=== PATIENT | male | born 1935 | race Caucasian/White ===

== ENCOUNTER 2016-09-07 18:42 | Emergency (ER) | payer MEDICARE, OTHER ==
--- NOTE | 2016-09-07 19:29 | ED Physician Documentation ---
History of Present Illness - Stated complaint Stated Complaint: GLF - ARM PX - Chief complaint Chief Complaint: General - History obtained from History obtained from: Patient, Family - History of Present Illness Timing: Today Pain level max: 2 Pain level now: 2 Improved by: nothing Worsened by: nothing - Additonal information Additional information: Patient is an 80-year-old male who was at home today, walking and fell onto some brick. He sustained a laceration to the left hand, abrasions to the left tibia and skin tears to the right elbow. Did not hit his head. Has no headache. Review of Systems Throat: denies: Sore throat Respiratory: denies: Cough GI: denies: Vomiting Musculoskeletal: denies: Neck pain, Back pain Neurologic: denies: Focal weakness, Numbness, Headache, Head injury, LOC PD PAST MEDICAL HISTORY - Past Medical History Past Medical History: Yes Cardiovascular: Hypertension, High cholesterol Neuro: Seizure disorder Musculoskeletal: Chronic back pain - Past Surgical History Past Surgical History: Yes Ortho: Shoulder arthroplasty, Spine surgery - Present Medications Home Medications: Ambulatory Orders Medication Instructions Recorded Confirmed Aspirin 81 mg PO DAILY 09/07/16 09/07/16 Cephalexin [Keflex] 500 mg PO Q6H #28 capsule 09/07/16 Doxazosin [Cardura] 8 mg PO DAILY 09/07/16 09/07/16 Finasteride 5 mg PO DAILY 09/07/16 09/07/16 Gabapentin 300 mg PO TID 09/07/16 09/07/16 Phenytoin [Dilantin] 300 mg PO DAILY 09/07/16 09/07/16 Propranolol HCl 40 mg PO DAILY 09/07/16 09/07/16 Simvastatin 20 mg PO DAILY 09/07/16 09/07/16 amLODIPine [Norvasc] 5 mg PO BID 09/07/16 09/07/16 - Allergies Allergies/Adverse Reactions: Allergies Allergy/AdvReac Type Severity Reaction Status Date / Time No Known Drug Allergies Allergy Verified 09/07/16 18:48 - Social History Does the pt smoke?: No Smoking Status: Never smoker Does the pt drink ETOH?: No Does the pt have substance abuse?: No - Immunizations Immunizations are current?: Yes Immunizations: TDAP current <10years PD ED PE NORMAL - Vitals Vital signs reviewed: Yes - General General: Alert and oriented X 3, No acute distress - HEENT HEENT: Atraumatic, PERRL, Moist mucous membranes, Pharynx benign - Neck Neck: Supple, no meningeal sign, No bony TTP - Cardiac Cardiac: RRR - Respiratory Respiratory: No respiratory distress, Clear bilaterally - Abdomen Abdomen: Soft, Non tender - Back Back: No spinal TTP - Derm Derm: Warm and dry - Extremities Extremities: Other (Abrasion to the left proximal tibia. 2 skin tears to the right elbow, the largest is approximately 3-1/2 cm in circumference. The other one is smaller approximately 1 cm. He has a laceration to the lateral aspect of the left hand, mid palm approximately 3 cm, deep laceration. Neurovascularly intact. No foreign body. 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 ) Procedures - Laceration (location) L hand Length in cm: 3 Wound type: Linear, Into muscle, Contaminated Neurovascular status: Sensory intact, Motor intact, Vascular intact Tendon involvement: Tendon intact. No: Tendon Injury Anesthesia: Lidocaine 2% Wound Preparation: Irrigated copiously NS (1L NS), Wound explored, To the base. No: FB identified, FB removed Skin layer closure: Nylon, Interrupted, Size #-0 - enter number (4), Sutures - enter # (9) Other: Patient tolerated well, No complications, Neurovascular intact, Dressing applied, Tetanus UTD Complexity: Simple PD MEDICAL DECISION MAKING - ED course Complexity details: reviewed results, re-evaluated patient, considered differential, d/w patient, d/w family ED course: Patient is an 80-year-old male who fell today. Laceration repaired. Tolerated well. As this was a dirty wound, will place on Keflex for home as well. His tetanus shot is up-to-date. The skin tears were repaired using Steri-Strips. They were then bandaged with bacitracin. No other acute injuries. Patient and family counseled regarding signs and symptoms for which I believe and urgent re- evaluation would be necessary. Patient with good understanding of and agreement to plan and is comfortable going home at this time This document was made in part using voice recognition software. While efforts are made to proofread this document, sound alike and grammatical errors may occur. Departure - Departure Disposition: 01 Home, Self Care Clinical Impression: Skin tear Laceration of hand Qualifiers: Encounter type: initial encounter Foreign body presence: without foreign body Laterality: left Qualified Code(s): S61.412A - Laceration without foreign body of left hand, initial encounter Condition: Good Instructions: ED Laceration Hand, ED Avulsion Dermal Follow-Up: Samia Barnes DO [Primary Care Provider] - Within 1 week Prescriptions: Cephalexin [Keflex] 500 mg PO Q6H #28 capsule Comments: Return if you worsen. The stitches should be removed in 10-14 days with your doctor. Return if you notice redness, swelling or drainage from the wound. Discharge Date/Time: 09/07/16 21:44
[2016-09-07] MEDS ORDERED: LIDOCAINE 2% 10 ML MDV ONE (19:41)
[2016-09-07] MEDS ORDERED: CEPHALEXIN 250 MG CAPSULE PO STA (21:07)
[2016-09-07] MEDS ORDERED: CEPHALEXIN 250 MG CAPSULE PO ONE (21:09)
[2016-09-07 21:10] VITALS: BP 181/77
--- NOTE | 2016-09-07 21:39 | XRAY Preliminary Report ---
Exam: XR Hand 3 View LT IMPRESSION: Degenerative changes without evidence of acute osseous abnormality. [facility] SITE ID: [id number]
--- NOTE | 2016-09-07 21:41 | XRAY Report ---
EXAM: LEFT HAND RADIOGRAPHY EXAM DATE: 09/07/2016 09:29 PM. CLINICAL HISTORY: Fall, hand laceration. COMPARISON: None. TECHNIQUE: 3 views. FINDINGS: Bones: Normal. No fractures or bone lesions. Joints: Joint space narrowing and proliferative changes are present in the distal interphalangeal re nts. No subluxation. There is chondrocalcinosis in the triangular fibrocartilage. Soft Tissues: Second digit soft tissue swelling. IMPRESSION: Degenerative changes without evidence of acute osseous abnormality. [facility] Referring Provider Line: [phone] SITE ID: [id number]
== END 2016-09-07 21:44 | disposition home or self-care (01) ==
LOC: ED 18:42
DX: S61.412A Laceration without foreign body of left hand, initial encounter (principal); S80.812A Abrasion, left lower leg, initial encounter; S51.011A Laceration without foreign body of right elbow, initial encounter; W19.XXXA Unspecified fall, initial encounter; Z79.82 Long term (current) use of aspirin; E78.00 Pure hypercholesterolemia, unspecified; I10 Essential (primary) hypertension
CPT/HCPCS: 12002; 73130; 99283; A9270

== ENCOUNTER 2016-09-22 12:48 | Emergency (ER) | payer MEDICARE, OTHER ==
[2016-09-22 12:55] VITALS: BP 153/69
--- NOTE | 2016-09-22 13:09 | ED Physician Documentation ---
PD HPI WOUND RECHECK - Stated complaint Stated Complaint: STITCH REMOVAL - Chief complaint Chief Complaint: Laceration - Histroy obtained from History obtained from: Patient - History of Present Illness Location: Other (L hand) Timing - onset: How many weeks ago (2) Pain level max: 0 Pain level now: 0 Associated symptoms: No: Fever, Redness, Swelling, Drainage, Pain - Additional information Additional information: No complaints. Review of Systems Constitutional: denies: Fever Skin: denies: Rash Musculoskeletal: denies: Neck pain, Back pain PD PAST MEDICAL HISTORY - Past Medical History Past Medical History: Yes Cardiovascular: Hypertension, High cholesterol Neuro: Seizure disorder Musculoskeletal: Chronic back pain - Past Surgical History Past Surgical History: Yes Ortho: Shoulder arthroplasty, Spine surgery - Present Medications Home Medications: Ambulatory Orders Medication Instructions Recorded Confirmed Aspirin 81 mg PO DAILY 09/07/16 09/07/16 Cephalexin [Keflex] 500 mg PO Q6H #28 capsule 09/07/16 Doxazosin [Cardura] 8 mg PO DAILY 09/07/16 09/07/16 Finasteride 5 mg PO DAILY 09/07/16 09/07/16 Gabapentin 300 mg PO TID 09/07/16 09/07/16 Phenytoin [Dilantin] 300 mg PO DAILY 09/07/16 09/07/16 Propranolol HCl 40 mg PO DAILY 09/07/16 09/07/16 Simvastatin 20 mg PO DAILY 09/07/16 09/07/16 amLODIPine [Norvasc] 5 mg PO BID 09/07/16 09/07/16 - Allergies Allergies/Adverse Reactions: Allergies Allergy/AdvReac Type Severity Reaction Status Date / Time No Known Drug Allergies Allergy Verified 09/22/16 12:55 - Social History Does the pt smoke?: No Smoking Status: Never smoker Does the pt drink ETOH?: No Does the pt have substance abuse?: No - Immunizations Immunizations are current?: Yes Immunizations: TDAP current <10years PD ED PE NORMAL - Vitals Vital signs reviewed: Yes - General General: Alert and oriented X 3, No acute distress - Extremities Extremities: Other (L hand - healing well. no signs of infection. Elbow and tib/ fib abrasions are also without infection.) - Neuro Neuro: Alert and oriented X 3 - Psych Psych: Normal mood, Normal affect Results - Vitals Vitals: Vital Signs - 24 hr 09/22/16 12:51 Temperature 36.5 C Heart Rate 55 L Respiratory 20 Rate Blood Pressure 153/69 H O2 Saturation 99 Oxygen O2 Source Room air Procedures - Suture/staple Removal (location) L hand Suture/staple removal: # sutures (all), No complications PD MEDICAL DECISION MAKING - ED course Complexity details: considered differential, d/w patient, d/w family ED course: Patient is an 80-year-old male who is here to have his sutures removed. This was done. No signs of infection. Patient is well-appearing, nontoxic. Afebrile. Warnings of infection and instructions on wound care given at bedside. Also counseled on how to minimize scarring. Patient counseled regarding signs and symptoms for which I believe and urgent re-evaluation would be necessary. Patient with good understanding of and agreement to plan and is comfortable going home at this time This document was made in part using voice recognition software. While efforts are made to proofread this document, sound alike and grammatical errors may occur. Departure - Departure Disposition: 01 Home, Self Care Clinical Impression: Visit for suture removal Condition: Good Instructions: ED Wound Check Sutr Remove No Infec Follow-Up: Samia Barnes DO [Primary Care Provider] - As Needed Comments: Return if you worsen.
== END 2016-09-22 13:11 | disposition home or self-care (01) ==
LOC: ED 12:48
DX: S61.412D Laceration without foreign body of left hand, subsequent encounter (principal); X58.XXXD Exposure to other specified factors, subsequent encounter; I10 Essential (primary) hypertension; Z79.82 Long term (current) use of aspirin
CPT/HCPCS: 99281; 99283

== ENCOUNTER 2017-04-15 10:06 | Outpatient (CLI) | payer MEDICARE, OTHER ==
--- NOTE | 2017-04-15 13:00 | XRAY Report ---
DATE OF SERVICE: 04/15/2017 THREE VIEW RIGHT FOOT: 04/15/2017 CLINICAL INDICATION: Ulcer second toe. FINDINGS: AP, lateral, and oblique views of the right foot demonstrate osteoarthritic changes. Plantar and posterior calcaneal spurring is present. There is no evidence of acute fracture or dislocation. No osteolysis is seen to suggest osteomyelitis. Vascular calcifications are present. No foreign body is seen in the soft tissues. IMPRESSION: OSTEOARTHRITIS. NO OSTEOLYSIS TO SUGGEST OSTEOMYELITIS. TD: 04/15/2017 13:59
== END 2017-04-15 10:07 | disposition home or self-care (01) ==
LOC: DI 10:06
PROVIDERS: ATTEND Podiatrist
DX: M19.071 Primary osteoarthritis, right ankle and foot (principal)

== ENCOUNTER 2019-02-15 09:31 | Outpatient (CLI) | payer MEDICARE, OTHER | END 2019-02-15 09:32 | disposition EMS.NT | LOC: EMS 09:31 | PROVIDERS: ATTEND Surgery | DX: R19.8 Other specified symptoms and signs involving the digestive system and abdomen (principal) ==

== ENCOUNTER 2019-05-19 18:35 | Outpatient (CLI) | payer MEDICARE, OTHER | END 2019-05-19 18:36 | disposition critical access hospital (66) | LOC: EMS 18:35 | PROVIDERS: ATTEND Surgery | DX: R53.1 Weakness (principal); M54.5 Low back pain; W01.0XXA Fall on same level from slipping, tripping and stumbling without subsequent striking against object, initial encounter | CPT/HCPCS: A0425; A0429 ==

== ENCOUNTER 2019-05-19 18:59 | Observation (INO) | payer MEDICARE, OTHER ==
[2019-05-19] MEDS ORDERED: SODIUM CHLORIDE 0.9% 1,000 ML IV ONE (19:33)
[2019-05-19 19:53] LABS: BASOPHILS # (AUTO) 0.1 10^3/uL (0.0-0.1); EOSINOPHILS # (AUTO) 0.1 10^3/uL (0.0-0.7); EOSINOPHILS % (AUTO) 1.5 %; HGB - HEMOGLOBIN 11.6 g/dL (14.0-18.0); LYMPHOCYTES # (AUTO) 1.1 10^3/uL (1.5-3.5); LYMPHOCYTES % (AUTO) 14.1 %; MEAN CORPUSCULAR HEMOGLOBIN 29.4 pg (27.0-31.0); MEAN CORPUSCULAR HGB CONC 32.7 g/dL (32.0-36.0); MEAN CORPUSCULAR VOLUME 89.9 fL (80.0-94.0); MEAN PLATELET VOLUME 9.2 fL (7.4-11.4); MONOCYTES # (AUTO) 0.8 10^3/uL (0.0-1.0); MONOCYTES % (AUTO) 10.2 %; NEUTROPHILS # (AUTO) 5.9 10^3/uL (1.5-6.6); NEUTROPHILS % (AUTO) 72.7 %; PLT - PLATELET COUNT 195 10^3/uL (130-450); RED BLOOD COUNT 3.95 10^6/uL (4.70-6.10); RED CELL DISTRIBUTION WIDTH 13.4 % (12.0-15.0)
[2019-05-19] MEDS ORDERED: DEXAMETHASONE 10 MG/ML VIAL IVP STA (19:56)
--- NOTE | 2019-05-19 19:59 | ED Physician Documentation ---
History of Present Illness - Stated complaint Stated Complaint: GLF - Chief complaint Chief Complaint: Neuro - History obtained from History obtained from: Patient, Family, EMS - History of Present Illness Timing: Today - Additonal information Additional information: 83-year-old male with chronic back pain and a right foot drop status post surgery x2 and epidural steroid injections was using his walker this morning when he decided he could walk to the closet without it. He fell. He injured his upper back. He did hit his head and has some neck pain. He was not knocked unconscious. He was able to get back up and he returned to his usual activities of the day. He went out for coffee in the morning. This evening he went to sit down and was not able to get up back up out of the chair. His legs were wobbling both of them and unable to support his weight. Even medics had a hard time getting the patient to stand up. His family was not able to assist him to stand. He has had some similar "wobbling" of the right leg previously but he is generally able to get around this. He denies current illness or change in medications or his routine. He has been using a walker for about 2 months and previously used a cane for the past 2 years. He denies any numbness to the feet but has his right foot in a brace for foot drop long standing and he does not feel this has changed. He is on dilantin after having an alcohol withdrawal seizure in 1985. He has been on it since and tried to stop once and when he experienced de-ja-vo he restarted it and has never stopped. Review of Systems Constitutional: reports: Fatigue. denies: Fever, Chills, Myalgias Eyes: denies: Decreased vision Ears: denies: Ear pain Nose: denies: Rhinorrhea / runny nose, Congestion Throat: denies: Sore throat Cardiac: denies: Chest pain / pressure, Palpitations Respiratory: denies: Dyspnea, Cough GI: reports: Constipation. denies: Abdominal Pain, Nausea, Vomiting : denies: Dysuria, Frequency Skin: denies: Rash Musculoskeletal: reports: Neck pain, Back pain. denies: Extremity pain, E xtremity swelling Neurologic: reports: Focal weakness (right foot drop is chronic). denies: Generalized weakness, Numbness PD PAST MEDICAL HISTORY - Past Medical History Cardiovascular: Hypertension, High cholesterol Musculoskeletal: Chronic back pain - Past Surgical History Past Surgical History: Yes Ortho: Shoulder arthroplasty, Spine surgery - Present Medications Home Medications: Ambulatory Orders Medication Instructions Recorded Confirmed Aspirin 81 mg PO DAILY 09/07/16 05/19/19 Doxazosin [Cardura] 8 mg PO DAILY PM 09/07/16 05/19/19 Finasteride 5 mg PO DAILY 09/07/16 05/19/19 Phenytoin [Dilantin] 100 mg PO TID 09/07/16 05/19/19 Simvastatin 20 mg PO DAILY PM 09/07/16 05/19/19 amLODIPine [Norvasc] 10 mg PO DAILY 09/07/16 05/19/19 Melatonin 5 mg PO DAILY 05/19/19 05/19/19 Sennosides/Docusate Sodium [Stool 1 each PO DAILY 05/19/19 05/19/19 Softener-Laxative Tablet] - Allergies Allergies/Adverse Reactions: Allergies Allergy/AdvReac Type Severity Reaction Status Date / Time No Known Drug Allergies Allergy Verified 05/19/19 19:11 - Social History Does the pt smoke?: No Smoking Status: Never smoker Does the pt drink ETOH?: No Does the pt have substance abuse?: No - Immunizations Immunizations are current?: Yes Immunizations: TDAP current <10years PD ED PE NORMAL - Vitals Vital signs reviewed: Yes (hypertensive ) - General General: Alert and oriented X 3, No acute distress, Well developed/nourished - HEENT HEENT: PERRL, EOMI, Other (The entire scalp is palpated and there is no specific point tenderness, bruising or swelling ) - Neck Neck: Supple, no meningeal sign, Other (There is mid and lower cervical spine midline point tenderness with preserved ROM without much pain. ) - Cardiac Cardiac: RRR, No murmur - Respiratory Respiratory: No respiratory distress, Clear bilaterally - Abdomen Abdomen: Soft, Non tender - Back Back: No CVA TTP, Other (There is a mid thoracic abrasion and tenderness to the left side of the spine and central tenderness mild. ) - Derm Derm: Normal color, Warm and dry - Extremities Extremities: Other (There is a cock up brace to the right foot which is held in external rotation at rest. Chronic. He is not able to move the toes on the right. He has normal movement and sensation in the left. ) - Neuro Neuro: Alert and oriented X 3, chief operator hydroformer 2-12 intact, No sensory deficit, Normal speech, Other (There is a pre-existing motor deficit on the right foot with a "foot drop") Eye Opening: Spontaneous Motor: Obeys Commands Verbal: Oriented GCS Score: 15 - Psych Psych: Normal mood, Normal affect Results - Vitals Vitals: Vital Signs - 24 hr 05/19/19 05/19/19 05/19/19 19:05 20:16 21:09 Temperature 36.8 C 36.9 C Heart Rate 81 76 75 Respiratory 21 13 16 Rate Blood Pressure 193/86 H 173/78 H 154/71 H O2 Saturation 98 96 95 05/19/19 05/20/19 05/20/19 22:21 00:03 01:13 Temperature Heart Rate 67 85 82 Respiratory 20 16 14 Rate Blood Pressure 136/66 H 137/68 H 139/82 H O2 Saturation 96 96 96 Oxygen O2 Source Room air - Labs Labs: Laboratory Tests 05/19/19 05/19/19 05/19/19 19:44 19:44 19:44 WBC 8.0 RBC 3.95 L Hgb 11.6 L Hct 35.5 L MCV 89.9 MCH 29.4 MCHC 32.7 RDW 13.4 Plt Count 195 MPV 9.2 Neut # (Auto) 5.9 Lymph # (Auto) 1.1 L Rolette # (Auto) 0.8 Eos # (Auto) 0.1 Baso # (Auto) 0.1 Absolute Nucleated RBC 0.00 Nucleated RBC % 0.0 Sodium 128 L Potassium 3.8 Chloride 94 L Carbon Dioxide 26 Anion Gap 8.0 BUN 10 Creatinine 0.6 Estimated GFR (MDRD) 128 Glucose 114 H Lactic Acid Calcium 9.0 Total Bilirubin 0.7 AST 23 ALT 18 Alkaline Phosphatase 100 Troponin I High Sens 8.7 Total Protein 7.3 Albumin 4.4 Globulin 2.9 Albumin/Globulin Ratio 1.5 Lipase 22 Urine Color Urine Clarity Urine pH Ur Specific [place] Urine Protein Urine Glucose (UA) Urine Ketones Urine Occult Blood Urine Nitrite Urine Bilirubin Urine Urobilinogen Ur Leukocyte Esterase Ur Microscopic Review Urine Culture Comments Phenytoin 3.4 05/19/19 05/19/19 19:44 20:51 WBC RBC Hgb Hct MCV MCH MCHC RDW Plt Count MPV Neut # (Auto) Lymph # (Auto) [place] # (Auto) Eos # (Auto) Baso # (Auto) Absolute Nucleated RBC Nucleated RBC % Sodium Potassium Chloride Carbon Dioxide Anion Gap BUN Creatinine Estimated GFR (MDRD) Glucose Lactic Acid 0.9 Calcium Total Bilirubin AST ALT Alkaline Phosphatase Troponin I High Sens Total Protein Albumin Globulin Albumin/Globulin Ratio Lipase Urine Color YELLOW Urine Clarity CLEAR Urine pH 7.0 Ur Specific [place] 1.010 Urine Protein NEGATIVE Urine Glucose (UA) NEGATIVE Urine Ketones NEGATIVE Urine Occult Blood TRACE-INTA Urine Nitrite NEGATIVE Urine Bilirubin NEGATIVE Urine Urobilinogen 0.2 (NORMAL) Ur Leukocyte Esterase NEGATIVE Ur Microscopic Review NOT INDICATED Urine Culture Comments NOT INDICATED Phenytoin - Rads (name of study) thoracic spine ct Radiology: Prelim report reviewed (Impression: No acute thoracic spine abnormalities.), EMP read indepedently, See rad report Cervical spine CT Radiology: Prelim report reviewed, EMP read indepedently, See rad report Head CT Radiology: Prelim report reviewed (Impression: No acute intracranial abnormality.), EMP read indepedently, See rad report CT lumbar spine Radiology: Prelim report reviewed (Impression: Diffuse osteopenia. Acute mildly displaced transverse fracture through superior endplate of L1 vertebral body. No extension into the posterior vertebral margin. No retropulsion. Stable fracture.), EMP read indepedently, See rad report Procedures - IVC sono (time) 192 Bedside IVC sono: IVC measures (cm) (1.01), IVC collapsed c insp (cm) (complete), Dehydration (est 1-2 liter deficit) PD MEDICAL DECISION MAKING - ED course Complexity details: reviewed old records, reviewed results, re-evaluated patient, considered differential, d/w patient, d/w family ED course: 83-year-old male who had a fall this morning is found to be dehydrated on interrogation of the inferior vena cava and he is administered venous saline. He has a low sodium but does not appear to be low enough to cause this significant of weakness. He is hydrated and still weak and unable to walk or stand without assistance. He has become anxious and complains of pain in the lower end of the lumbar spine when he is being moved around for imaging. He is given iv toradal and ativan before moving back for imaging of the lumbar spine. The CT scan of the lumbar spine shows transverse fracture through L1 without retropulsion or involvement of posterior elements. The patient is having tremendous difficulty standing. I watched the patient being helped by 2 strong males tried to stand. He was on the commode he was lifted his legs both begin to shake and he requires complete assistance. He is normally able to get himself out of bed and use his walker. I am concerned there may be some issue with swelling or spinal stenosis related to this acute injury. He was administered dexamethasone on arrival to the emergency department and despite 4 hours in the department he has not had improvement in his symptoms. I believe the patient needs to have MRI of the lumbar spine done. I have consulted the neurosurgeon at [facility] for further direction in his care. Dr. Manriquez spine attending at [facility] indicates that surgery is unlikely to be required and recommend follow up with spine clinic. We will get the MRI here today and disposition the patient pending the results. Dr. Mireles is consulted in the case. Departure - Departure Disposition: ED Place in Observation Clinical Impression: Assistance needed for ambulation and movement, Spinal stenosis of lumbar region with neurogenic claudication Closed L1 vertebral fracture Qualifiers: Encounter type: initial encounter Fracture morphology: burst- stable Qualified Code(s): S32.011A - Stable burst fracture of first lumbar vertebra, initial encounter for closed fracture Condition: Stable Discharge Date/Time: 05/20/19 03:40
[2019-05-19 20:07] LABS: ALBUMIN 4.4 g/dL (3.2-5.5); ALBUMIN/GLOBULIN RATIO 1.5 (1.0-2.2); BILIRUBIN,TOTAL 0.7 mg/dL (0.2-1.0); CREATININE 0.6 mg/dL (0.6-1.2); PHENYTOIN (DILANTIN) 3.4 ug/mL; TOTAL PROTEIN 7.3 g/dL (6.7-8.2)
--- NOTE | 2019-05-19 20:22 | CT Report ---
Reason: ataxia, post head trauma Procedure Date: 05/19/2019 Accession Number: [id number] / [id number] Procedure: CT - HEAD WO CPT Code: Final Report FULL RESULT: EXAM: CT HEAD EXAM DATE: 05/19/2019 08:07 PM. CLINICAL HISTORY: Ataxia, post head trauma. COMPARISON: None. TECHNIQUE: Multiaxial CT images were obtained from the foramen magnum to the vertex. Reformats: Sagittal and coronal. IV contrast: None. In accordance with CT protocol optimization, one or more of the following dose reduction techniques were utilized for this exam: automated exposure control, adjustment of mA and/or KV based on patient size, or use of iterative reconstructive technique. FINDINGS: Parenchyma: There are patchy periventricular low density white matter changes. No evidence of acute infarction or hemorrhage. Extraaxial Spaces: Normal for age. No subdural or epidural collections identified. Ventricles: Normal in size and position. Sinuses and Orbits: Imaged paranasal sinuses, orbits, and mastoids show no significant abnormality. Bones: No evidence of fracture or calvarial defect. Other: None. IMPRESSION: No acute intracranial abnormality. [facility]
--- NOTE | 2019-05-19 20:31 | CT Report ---
Reason: polytrauma, critical Procedure Date: 05/19/2019 Accession Number: [id number] / [id number] Procedure: CT - CERVICAL SPINE WO CPT Code: Final Report FULL RESULT: EXAM: CT CERVICAL SPINE WITHOUT CONTRAST DATE: 05/19/2019 08:07 PM. HISTORY: Polytrauma, critical. COMPARISONS: HEAD W/O 05/19/2019 7:55 PM THORACIC SPINE W/O 05/19/2019 8:02 PM. TECHNIQUE: Thin-section axial images were acquired of the cervical spine without contrast. Post-processing: Coronal and sagittal reformats. Other: None. In accordance with CT protocol optimization, one or more of the following dose reduction techniques were utilized for this exam: automated exposure control, adjustment of mA and/or KV based on patient size, or use of iterative reconstructive technique. FINDINGS: Alignment: No scoliosis or spondylolisthesis. Bones: No fracture or bone lesion from the craniocervical junction through T2. Interspace Levels/Facets: Moderate osteoarthritis of the pre-dens interval. 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 Disk height loss and endplate osteophyte formation indicating degenerative disk disease which is minimal at C2-C3, moderate C3-C4 through C5-C6, mild at C6-C7, moderate at C7-T1, mild at T1-T2. There is minimal multilevel upper bilateral cervical facet osteoarthritis. There is bony foraminal stenosis which is moderate bilaterally at C3-C4, severe bilaterally at C4-C5, severe on the right and moderate on the left at C5-C6. Musculature: Normal. No fatty atrophy. Other: The paravertebral and prevertebral soft tissues are unremarkable. The lung apices are clear. IMPRESSION: 1. No fracture or subluxation of the cervical spine. 2. Moderate multilevel cervical degenerative changes as described above. [facility]
--- NOTE | 2019-05-19 20:35 | CT Report ---
Reason: fall mid thoracic trauma leg weakness Procedure Date: 05/19/2019 Accession Number: [id number] / [id number] Procedure: CT - THORACIC SPINE WO CPT Code: Final Report FULL RESULT: EXAM: CT THORACIC SPINE WITHOUT CONTRAST EXAM DATE: 05/19/2019 08:07 PM. CLINICAL HISTORY: Fall. Mid thoracic trauma. Leg weakness. COMPARISONS: None. TECHNIQUE: Thin-section axial images were acquired of the thoracic spine from C7 to L1 without contrast. Post-processing: Coronal and sagittal reformats. Other: None. In accordance with CT protocol optimization, one or more of the following dose reduction techniques were utilized for this exam: automated exposure control, adjustment of mA and/or KV based on patient size, or use of iterative reconstructive technique. FINDINGS: Alignment: No scoliosis or spondylolisthesis. Bones: Anterolateral hyperostosis with rigid spine. No traumatic or destructive bone abnormality. Disk Levels/Facets: Disk space is preserved. No facet malalignment. Other: The visualized lungs, mediastinum, and abdominal cavity are unremarkable. IMPRESSION: No acute thoracic spine abnormalities. RADIA
[2019-05-19 20:59] LABS: BILIRUBIN,URINE NEGATIVE (NEGATIVE); GLUCOSE, URINE (UA) NEGATIVE (NEGATIVE); KETONES,URINE (UA) NEGATIVE (NEGATIVE); LEUKOCYTE ESTERASE, URINE NEGATIVE (NEGATIVE); NITRITE,URINE NEGATIVE (NEGATIVE); OCCULT BLOOD,URINE TRACE-INTA (NEGATIVE); PROTEIN,URINE NEGATIVE (NEGATIVE); UROBILINOGEN,URINE 0.2 (NORMAL) E.U./dL (NORMAL)
[2019-05-19 21:03] LABS: CLARITY,URINE CLEAR (CLEAR)
[2019-05-19] MEDS ORDERED: LORazepam 2 MG/ML VIAL IVP STA (21:33)
[2019-05-19] MEDS ORDERED: KETOROLAC 30 MG/ML VIAL IVP STA (21:33)
--- NOTE | 2019-05-19 22:36 | CT Report ---
Reason: fall back pain LE weakness Procedure Date: 05/19/2019 Accession Number: [id number] / [id number] Procedure: CT - LUMBAR SPINE WO CPT Code: Final Report FULL RESULT: EXAM: CT LUMBAR SPINE WITHOUT CONTRAST EXAM DATE: 05/19/2019 10:07 PM. CLINICAL HISTORY: Fall back pain LE weakness. COMPARISONS: None. TECHNIQUE: Thin-section axial images were acquired of the lumbar spine from T12 to S1 without contrast. Post-processing: Coronal and sagittal reformats. Other: None. In accordance with CT protocol optimization, one or more of the following dose reduction techniques were utilized for this exam: automated exposure control, adjustment of mA and/or KV based on patient size, or use of iterative reconstructive technique. FINDINGS: Alignment: No scoliosis or spondylolisthesis. Bones: Diffuse osteopenia. Acute mildly displaced transverse fracture through superior endplate of L1 vertebral body. No extension into posterior vertebral margin. No retropulsion. Musculature: Normal. No fatty atrophy. Other: The visualized retroperitoneum is unremarkable. IMPRESSION: Diffuse osteopenia. Acute mildly displaced transverse fracture through superior endplate of L1 vertebral body. No extension into posterior vertebral margin. No retropulsion.Stable fracture. RADIA
[2019-05-20] MEDS ORDERED: KETOROLAC 30 MG/ML VIAL IVP STA (02:22)
[2019-05-20] MEDS ORDERED: SODIUM CHLORIDE FLUSH 0.9% 10 ML SYRINGE IVP PRN (02:52)
--- NOTE | 2019-05-20 03:34 | HISTORY & PHYSICAL EXAMINATION ---
Chief Complaint - Chief Complaint Chief Complaint: Fall and weakness History of Present Illness - Admitted From Admitted From:: Home - History Obtained From Records Reviewed: Yes History obtained from: Patient, Spouse, ER Physician, EMR - History of Present Illness HPI Comment/Other: 83-year-old male with a past medical history significant for hypertension and chronic lower back pain with a right foot drop who presented yesterday evening for weakness and difficulty ambulating after having a fall yesterday morning. The patient states he has chronic lower back pain after he had lumbar surgery in the late 70s. He recently has been receiving epidural steroid injections with the last one being near the end of 2018. Receives and injections with Dr. Langford at [place]. He states the most recent one was not successful as his pain is only controlled for a few days. He states that he has had right dropfoot for the past few years. He had initially been ambulating with a cane but now needs to use a walker. 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 He states that he has chronic numbness in his right lower extremity that is most prominent below the right knee. Yesterday morning he went ambulate to his closet at around 6:30 AM but he did not use his walker like he usually does and he fell. He denied any syncope or loss of consciousness. He did slightly hit the back of his head but most of the fall had him landed on his lower back. He states that he was able to get up with assistance and was able to go on with his day which included getting coffee with his and friends likely do every morning. He states that when he returned home in the afternoon he was still doing fine. He notes in the evening he was unable to get out of the chair which is new for him. He needed assistan ce and had to use his upper extremities to help stand up. He states that his both his legs felt weak and shaky. He reports no bladder or bowel incontinence or perineal anesthesia. +He reports no fevers, chills, chest pain, dizziness, palpitations. He reports his lower back pain is currently controlled after receiving pain medication in the emergency department. He reports no seizure today. He is on Dilantin after he had an alcohol withdrawal seizure back in 1985. He no longer drinks alcohol. Reports he has had good oral intake at home but he does report feeling thirsty at the moment. In the emergency department, he is found to be afebrile temperature of 37 C, heart rate of 81. He was hypertensive with a blood pressure of 193/86. He was not tachypneic and saturating well on room air. Labs are unremarkable except for sodium of 128 and chloride of 94. Urinalysis was unremarkable. CT of the head, cervical spine, thoracic spine did not show any acute abnormalities. CT of the lumbar spine showed an acute mildly displaced transverse fracture through superior endplate of the L1 vertebral body with no extension into posterior vertebral margin and no retropulsion. The patient was still quite weak in the emergency department and he was unable to get out of bed without a two-person assist patient. Neurosurgery was contacted at [facility] by the emergency department physician who felt acute surgical intervention was not warranted. He recommended he can follow-up with the spine clinic and a MRI can be obtained. Patient did receive a liter of saline in the emergency department as well as 10 mg of dexamethasone. He also received Toradol with improvement in his pain. I did discuss goals of care with the patient who states that he would like to be a DNR. History - Past Medical History Cardiovascular: reports: Hypertension, High cholesterol Respiratory: reports: None Neuro: reports: None, Other (Alcohol withdrawal seizure) Endocrine/Autoimmune: reports: None GI: reports: None : reports: None HEENT: reports: None Psych: reports: None Musculoskeletal: reports: Chronic back pain Derm: reports: None MRSA Hx?: No - Past Surgical History Ortho: reports: Shoulder arthroplasty, Spine surgery - Family & Social History Living arrangement: At home Living Situation: With spouse/s.o. Social History Notes: He lives at home with his . He no longer smokes or drinks alcohol after quitting in 1985. - Substance History Use: Uses substance without health or social issues: NONE - POLST Patient has POLST: No Meds/Allgy - Home Medications Home Medications: Ambulatory Orders Medication Instructions Recorded Confirmed Aspirin 81 mg PO DAILY 09/07/16 05/19/19 Doxazosin [Cardura] 8 mg PO DAILY PM 09/07/16 05/19/19 Finasteride 5 mg PO DAILY 09/07/16 05/19/19 Phenytoin [Dilantin] 100 mg PO TID 09/07/16 05/19/19 Simvastatin 20 mg PO DAILY PM 09/07/16 05/19/19 amLODIPine [Norvasc] 10 mg PO DAILY 09/07/16 05/19/19 Melatonin 5 mg PO DAILY 05/19/19 05/19/19 Sennosides/Docusate Sodium [Stool 1 each PO DAILY 05/19/19 05/19/19 Softener-Laxative Tablet] - Allergies Allergies/Adverse Reactions: Allergies Allergy/AdvReac Type Severity Reaction Status Date / Time No Known Drug Allergies Allergy Verified 05/19/19 19:11 Review of Systems - Constitutional Constitutional: reports: Weakness. denies: Fatigue, Fever, Chills - Cardiovascular Cariovascular: denies: Palpitations, Chest pain, Lightheadedness, Syncope - Respiratory Respiratory: denies: Cough, SOB at rest, SOB with exertion - Gastrointestinal Gastrointestinal: denies: Abdominal pain, Nausea, Vomiting - Genitourinary Genitourinary: denies: Dysuria, Frequency, Urgency, Incontinence - Musculoskeletal Musculoskeletal: reports: Back pain, Limited range of motion, Muscle weakness - Integumentary Integumentary: denies: Rash - Neurological Neurological: reports: General weakness, Focal weakness, Numbness, Pre-existing deficit, Abnormal gait - All Other Systems All Other Systems: reports: Reviewed and negative Prior Level of Functionality: Lives at home with his and he is normally independent with his ADLs. He ambulates with a walker at baseline. Exam - Vital Signs Reviewed Vital Signs: Yes Vital Signs: Vital Signs x48h Temp Pulse Resp BP Pulse Ox 05/20/19 01:13 82 14 139/82 H 96 05/20/19 00:03 85 16 137/68 H 96 05/19/19 22:21 67 20 136/66 H 96 05/19/19 21:09 36.9 C 75 16 154/71 H 95 05/19/19 20:16 76 13 173/78 H 96 - Physical Exam General Appearance: positive: No acute distress, Alert Eyes Bilateral: positive: Normal inspection, Conjunctivae nml ENT: positive: ENT inspection nml, Dry mucous membranes Neck: positive: Nml inspection Respiratory: positive: No respiratory distress. negative: Wheezes, Rales, Rhon chi Cardiovascular: positive: Regular rate & rhythm, Systolic murmur. negative: Tachycardia, Bradycardia Abdomen: positive: Non-tender, No distention. negative: Tenderness Back: positive: Other (Prior incisional scar noted over the lumbar spine. No spinal tenderness. No paraspinal muscle tenderness.) Skin: positive: No rash, Warm, Dry Extremities: positive: No pedal edema Neurologic/Psychiatric: positive: Oriented x3, Other (He has decreased sensation below the right knee which she states is not new. He has 4 out of 5 motor strength in his left lower extremity. His motor strength in his right lower extremity is about 3 out of 5 proximally and 3 out of 5 distally. He is unable to dorsiflex his right foot.). negative: Disoriented to person, Disoriented to place, Disoriented to time Comments/Other: It was difficult to assess his lower extremity reflexes due to his seating position and difficulty moving out of bed secondary to pain and weakness. He tells me he normally has no reflexes in his right lower extremity below the knee. His reflexes did appear to be diminished on exam bilaterally in the lower extremities at L2-L4. Conclusion/Plan - Problem List (1) Closed L1 vertebral fracture Conclusion/Plan: He has an acute mildly displaced transverse fracture through superior endplate of the L1 vertebral body with no extension into posterior vertebral margin or retropulsion. This is likely secondary to his fall as he reports his lower back took the brunt of the force. The case was discussed with neurosurgery luzmaria feliciano no acute surgical intervention and to follow-up at the spine clinic as well as obtaining an MRI of the lumbar spine. The MRI will be obtained given his worsening weakness of his right lower extremity as well as new weakness in his left lower extremity. He will be admitted for observation for pain control. Treat his pain with Tylenol 1 g 3 times daily and oxycodone as needed. Consult physical therapy. Qualifiers: Encounter type: initial encounter Fracture morphology: other fracture Qualified Code(s): S32.018A - Other fracture of first lumbar vertebra, initial encounter for closed fracture (2) Lower extremity weakness Conclusion/Plan: He normally has chronic right lower extremity weakness secondary to chronic back pain and dropfoot but today he has bilateral lower extremity weakness although this is more prominent in his right lower extremity. Suspect this is secondary to his fall this morning that caused the L1 fracture. Although the CT does not show significant displacement of the fracture, his ongoing symptoms warrant further work-up with MRI of the lumbar spine. We will consult physical therapy. Qualifiers: Laterality: bilateral Qualified Code(s): R29.898 - Other symptoms and signs involving the musculoskeletal system (3) Fall Conclusion/Plan: Ground-level fall appears to be mechanical in nature. No evidence of syncope by history. Given his ongoing lower extremity weakness and required assistance, will consult physical therapy. Qualifiers: Encounter type: initial encounter Qualified Code(s): W19.XXXA - Unspecified fall, initial encounter (4) Hyponatremia Conclusion/Plan: Suspect this is hypovolemic hyponatremia as he appears dry on exam. His sodium is low at 128. We will treat him with IV fluids and monitor his sodium. (5) Dehydration Conclusion/Plan: He does appear hypervolemic on exam and his sodium is decreased. We will treat him with IV fluids. This may potentially be contributing to his new weakness. (6) Hypertension Conclusion/Plan: Pressure is was initially quite elevated systolic in the 190s but suspect some secondary to pain. It is now improved and we will resume his home antihypertensives. (7) Hyperlipidemia Conclusion/Plan: Continue his home simvastatin. (8) Cardiac murmur Conclusion/Plan: There is a murmur on exam which is concerning for aortic stenosis. Will obtain an echocardiogram. (9) History of seizure Conclusion/Plan: He has a history of seizure in 1985 after he quit drinking alcohol. We will resume his home Dilantin. - Lab Results Lab results reviewed: Yes Fish Bones: 05/20/19 04:50 05/20/19 04:50 - Diagnostic Imaging Results Diagnostic Imaging Results: positive: Final report reviewed Core Measures - Anticipated LOS I expect patient to be DC'd or transferred within 96 hours.: Yes - Issues Hospital Issues and Management Plan: 83-year-old male with chronic back pain and right foot drop who presents today with new back pain and worsening deficit after a fall. Found to have a lumbar fracture of L1 with no retropulsion. The case was discussed with neurosurgery at [facility] who felt transfer was not warranted and likely no role for acute surgical intervention. Will obtain MRI for further evaluation. Consult PT and pain control. He is also dehydrated and hyponatremic. Will treat with IV fluids. - DVT/VTE - Prophylaxis VTE/DVT Device ordered at admit?: Yes VTE/DVT Prophylaxis med ordered at admit?: Yes
[2019-05-20 05:25] LABS: BASOPHILS % (AUTO) 0.3 %; HGB - HEMOGLOBIN 10.9 g/dL (14.0-18.0); LYMPHOCYTES # (AUTO) 0.6 10^3/uL (1.5-3.5); LYMPHOCYTES % (AUTO) 7.4 %; MEAN CORPUSCULAR HEMOGLOBIN 28.5 pg (27.0-31.0); MEAN CORPUSCULAR HGB CONC 32.3 g/dL (32.0-36.0); MEAN PLATELET VOLUME 9.8 fL (7.4-11.4); MONOCYTES # (AUTO) 0.6 10^3/uL (0.0-1.0); MONOCYTES % (AUTO) 7.1 %; NEUTROPHILS # (AUTO) 6.7 10^3/uL (1.5-6.6); NEUTROPHILS % (AUTO) 84.8 %; PLT - PLATELET COUNT 194 10^3/uL (130-450); RED BLOOD COUNT 3.83 10^6/uL (4.70-6.10); RED CELL DISTRIBUTION WIDTH 13.4 % (12.0-15.0); WHITE BLOOD COUNT 7.9 x10^3/uL (4.8-10.8)
[2019-05-20 05:35] LABS: CALCIUM 8.9 mg/dL (8.5-10.3); CREATININE 0.7 mg/dL (0.6-1.2); MAGNESIUM 2.1 mg/dL (1.7-2.8); PHOSPHORUS 2.4 mg/dL (2.5-4.6)
[2019-05-20] MEDS: ACETAMINOPHEN 500 MG TABLET PO SCH ×3 (06:38→21:54)
[2019-05-20] MEDS: PHENYTOIN ER 100 MG CAPSULE PO SCH ×3 (06:38→21:54)
[2019-05-20] MEDS: SODIUM CHLORIDE 0.9% 1,000 ML IV SCH ×2 (06:38→17:25)
--- NOTE | 2019-05-20 08:45 | PHARMACY PROGRESS NOTE ---
- Best Possible Medication History Admit Date and Time: 05/20/19 0252 Processed by: Nursing Medication History completed: Yes As the person ultimately responsible for medication therapy, providers are able to order a medication from an existing home medication list in [facility] via the "Reconcile Routine" prior to Confirmation of that medication by customer support engineer. Such practice is discouraged except when the physician, in their clinical judgment, deems that a medical need exists for a medication without regard to previous use.
[2019-05-20] MEDS: amLODIPine 5 MG TABLET PO SCH (09:54)
[2019-05-20] MEDS: ASPIRIN CHEW 81 MG TABLET PO SCH (09:54)
[2019-05-20] MEDS: HEPARIN 5,000 UNIT/ML VIAL SUBQ SCH ×2 (09:55→20:41)
[2019-05-20] MEDS: oxyCODONE 5 MG TABLET PO PRN (10:06)
[2019-05-20] MEDS: NEUTRA-PHOS 250 MG TABLET PO SCH ×2 (12:05→17:23)
--- NOTE | 2019-05-20 12:11 | MRI Report ---
Reason: Lumbar fracture. Neuro deficit. Weakness Procedure Date: 05/20/2019 Accession Number: [id number] / [id number] Procedure: MRI - Lumbar Spine W/O CPT Code: Final Report FULL RESULT: EXAM: MRI LUMBAR SPINE WITHOUT CONTRAST EXAM DATE: 05/20/2019 11:10 AM. CLINICAL HISTORY: Lumbar fracture. Neuro deficit. Back pain. Lower extremity weakness. Report of recent fall. Lumbar spine fracture follow-up. COMPARISON: LUMBAR SPINE W/O 05/19/2019 10:02 PM. TECHNIQUE: Multiplanar, multisequence T1-weighted and fluid-sensitive sequences of the lumbar spine from T12 to S1 without contrast. Other: None. FINDINGS: Spinal Canal: The conus terminates at L1-L2. Extensive cauda equina abnormality. Probable cauda equina compression from severe central stenosis at L2-L3. Below this, cauda equina nerve roots are irregular, distorted, clumped and peripheralized to varying degrees especially in the lower lumbar cistern at the L4 and L5 levels suggestive of chronic arachnoiditis. Alignment: No change of alignment. Bone Marrow: Five [id number] lumbar vertebral bodies are assumed. Similar degree of mild vertebral body height loss at L1 where there is a horizontally oriented region of abnormal marrow edema extending from the mid body upward to partially contact the inferior endplate, findings are consistent with minimally displaced acute unhealed compression fracture deformity similar to prior recent CT findings. No evidence of additional vertebral body collapse. Edema extends posteriorly into both pedicles. Chronic degenerative endplate signal changes at multiple levels. No other evidence of acute fracture related lumbar spine marrow edema focus. Disk Levels/Facets: T12-L1: Mild disk degeneration and facet arthropathy. Circumferential disk bulge. Right greater than left intraforaminal and far lateral disk protrusion with osteophyte. Minimal central stenosis. Foraminal stenosis is mild on the left and moderate on the right. L1-L2: Mild to moderate disk degeneration. Moderate facet arthropathy with ligamentum flavum thickening. Mild central stenosis. Mild to moderate lateral recess stenosis. Asymmetric right intraforaminal and far right lateral disk protrusion with osteophyte. Foraminal stenosis appears minimal to mild on the left but moderate on the right. L2-L3: Moderate disk degeneration. Circumferential bulge and marginal spurring. Moderate to severe posterior element hypertrophic degenerative changes with prominent ligamentum flavum thickening. Severe central canal and lateral recess stenosis. Additional asymmetric right intraforaminal and far lateral disk protrusion with osteophyte. Foraminal stenosis is mild on the left but moderate on the right. L3-L4: Chronic findings of previous posterior surgical laminotomy decompression. Moderately prominent posterior element hypertrophic degenerative changes. Moderately prominent disk degeneration. Circumferential bulge and marginal spurring. Mild to moderate central stenosis. Moderate left lateral recess stenosis. Mild right and mild to moderate left foraminal stenosis. L4-L5: Chronic findings of previous posterior laminotomy decompression, most evident on the right. Chronic moderate to severe disk degeneration. Moderate to marked posterior element hypertrophic degenerative changes. Minimal central stenosis. Moderate to severe left lateral recess stenosis. Circumferential bulge with marginal spurring. Very small midline posterior protrusion with minimal ventral thecal sac indentation. Moderate to severe left and severe right foraminal stenosis. L5-S1: Moderately prominent disk degeneration and facet arthropathy. Chronic findings of previous posterior surgical spinal decompression. No significant central stenosis. Prominent circumferential disk bulge with marginal spurring extending into both foraminal and extraforaminal zones, right worse than left. Foraminal stenosis appears at least moderate on the left but severe on the right. Musculature: Prominent diffuse fatty atrophy. Other: Fluid signal expansion of the renal pelvis bilaterally suggestive of expansile parapelvic cysts. Hydronephrosis is less likely. IMPRESSION: 1. Acute or recent minimally displaced horizontally oriented fracture through the upper L1 vertebral body. Associated marrow edema is present extending posteriorly into the pedicles. No evidence of additional height loss compared to recent CT. 2. 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 3. There are findings of previous posterior spinal surgical decompressions at L3-L4, L4-L5 and L5-S1 levels. 4. Severe appearing stenosis of the central canal and lateral recesses at L2-L3. 5. Probable chronic arachnoiditis with significant deformity of the cauda equina in the mid and lower lumbar cistern. Comment: The following findings are so common in adults without low back pain that while we report their presence, they must be interpreted with caution and in the context of the clinical situation. (Reference Tanvik et al, Spine 2001) Prevalence of findings in patients without low back pain: Disk degeneration (any evidence): 92% Disk desiccation/T2 signal loss: 83% Disk height loss: 56% Disk bulge: 64% Disk protrusion: 32% Annular tear/high intensity zone: 38% RADIA
[2019-05-20] MEDS: SODIUM CHLORIDE FLUSH 0.9% 10 ML SYRINGE IVP SCH ×2 (13:35→17:24)
[2019-05-20] MEDS: SENNA 8.6 MG TABLET PO SCH (20:39)
[2019-05-20] MEDS: DOCUSATE SODIUM 250 MG CAPSULE PO SCH (20:39)
[2019-05-20] MEDS: DOXAZOSIN 4 MG TABLET PO SCH ×2 (20:41→21:54)
[2019-05-20] MEDS ORDERED: ATORVASTATIN 10 MG TABLET PO SCH (21:00)
[2019-05-21] MEDS: SODIUM CHLORIDE FLUSH 0.9% 10 ML SYRINGE IVP SCH ×2 (00:13→09:21)
[2019-05-21 05:10] LABS: BASOPHILS # (AUTO) 0.1 10^3/uL (0.0-0.1); BASOPHILS % (AUTO) 1.2 %; EOSINOPHILS # (AUTO) 0.2 10^3/uL (0.0-0.7); EOSINOPHILS % (AUTO) 2.8 %; HGB - HEMOGLOBIN 10.6 g/dL (14.0-18.0); LYMPHOCYTES # (AUTO) 1.5 10^3/uL (1.5-3.5); LYMPHOCYTES % (AUTO) 25.7 %; MEAN CORPUSCULAR HEMOGLOBIN 28.5 pg (27.0-31.0); MEAN CORPUSCULAR HGB CONC 31.9 g/dL (32.0-36.0); MEAN CORPUSCULAR VOLUME 89.2 fL (80.0-94.0); MEAN PLATELET VOLUME 9.6 fL (7.4-11.4); MONOCYTES # (AUTO) 0.9 10^3/uL (0.0-1.0); MONOCYTES % (AUTO) 14.5 %; NEUTROPHILS # (AUTO) 3.3 10^3/uL (1.5-6.6); NEUTROPHILS % (AUTO) 55.6 %; PLT - PLATELET COUNT 177 10^3/uL (130-450); RED BLOOD COUNT 3.72 10^6/uL (4.70-6.10); RED CELL DISTRIBUTION WIDTH 13.7 % (12.0-15.0)
[2019-05-21 05:20] LABS: CALCIUM 8.8 mg/dL (8.5-10.3); CREATININE 0.7 mg/dL (0.6-1.2)
[2019-05-21] MEDS: PHENYTOIN ER 100 MG CAPSULE PO SCH (05:30)
[2019-05-21] MEDS: oxyCODONE 5 MG TABLET PO PRN (05:30)
[2019-05-21] MEDS: ACETAMINOPHEN 500 MG TABLET PO SCH ×2 (05:30→14:03)
[2019-05-21] MEDS ORDERED: polyethylene glycoL 3350 17 GM PACKET PO SCH (09:00)
[2019-05-21] MEDS: HEPARIN 5,000 UNIT/ML VIAL SUBQ SCH (09:15)
[2019-05-21] MEDS: amLODIPine 5 MG TABLET PO SCH (09:18)
[2019-05-21] MEDS: DOCUSATE SODIUM 250 MG CAPSULE PO SCH (09:18)
[2019-05-21] MEDS: NEUTRA-PHOS 250 MG TABLET PO SCH ×2 (09:19→14:03)
[2019-05-21] MEDS: SENNA 8.6 MG TABLET PO SCH (09:19)
[2019-05-21] MEDS: ASPIRIN CHEW 81 MG TABLET PO SCH (09:19)
[2019-05-21 12:48] VITALS: BP 151/71
--- NOTE | 2019-05-21 13:47 | Discharge Plan ---
Discharge Plan Problem Reviewed?: Yes Disposition: Home Health Service Condition: Stable Prescriptions: oxyCODONE [Roxicodone] 5 mg PO Q4HR PRN #25 tablet PRN Reason: Pain 5 to 7 Spironolactone 25 mg PO DAILY #30 tablet Diet: Regular Activity Restrictions: Wt Bearing as Tolerated Shower Restrictions: No Assistance Devices: Wheelchair, Walker Weight Bearing: Full Weight Instruction Topics: Hypertension Pulmonary, Fx Back Health Concerns: L1 vertebral fracture Lower extremity weakness Falls Dehydration Plan of Treatment: Continue to use recommended devices for transferring Continue condom catheters to prevent you from getting up alone at home PT,OT and home health aide to continue at home See your PCP within one week if possible Get a sleep study after your back issues have improved Care Goals: Maintain enough independence to remain at home with your Control pain to allow for therapies Prevent falls Prevent hospital stays or ED visits Assessment: You were admitted to the hospital since a fall, possibly leading to a L1 (lumbar) spinal fracture, which was confirmed via spinal MRI, without any other new findings. [facility] neuro-surgery was called to review films and give recommendations. Surgery is not recommended, and you are advised to continue working with physical therapy to slowly improve your strength. An echocardiogram of your heart was done to evaluate your heart murmur. This showed that you have what is called Cor Pulmonale (pulmonary hypertension), which means that the pressures on the right side of your heart are high. You should get a sleep study outpatient, ordered by your Primary care provider after this back issue improves. You may have noticed abdominal swelling or swelling to your legs by the end of the day. A medication change to better treat your blood pressure is indicated. Please pick this up at the pharmacy to be started tomorrow. Home health orders are in process, which I have ordered physical therapy, occupational therapy and a bath aide. Please avoid constipation, as this can aggravate back pain. Follow-Up Care: Home Health - PT, Home Health - OT No Smoking: If you smoke, Please STOP! Call for help. Follow-up with: Samia Barnes DO [Primary Care Provider] -
[2019-05-21] MEDS ORDERED: MAGNESIUM CITRATE 296 ML BOTTLE PO ONE (13:48)
--- NOTE | 2019-05-21 14:06 | DISCHARGE SUMMARY ---
Discharge Summary Admit Date: 05/20/19 Discharge Date: 05/21/19 Discharging Provider: VERENA Sandoval Primary Care Provider: Samia Dickerson Code Status: Do Not Attempt Resuscitation Condition at Discharge: Stable Discharge Disposition: 06 Home Health Service - DIAGNOSES Admission Diagnoses: Closed L1 vertebral fracture Lower extremity weakness Fall Hyponatremia Dehydration Hypertension Hyperlipidemia Cardiac murmur History of seizure Discharge Diagnoses with Status of Each Condition: Closed L1 vertebral fracture-Present on admit, likely occurred during a fall at home just prior to admission, stable, ongoing pain control, home health for PT/OT/bath aide 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, pain controlled, stable Lower extremity weakness-Chronic, progressive, PT/OT/bath aide ordered for home health services, equipment also ordered by PT and social work, ongoing, stable Back pain-Chronic on acute, ongoing, stable Fall-Chronic, stable Hyponatremia-Resolved Dehydration-Resolved Hypertension-Stopped Norvasc based on echo, started spironolactone for home use, stable Hyperlipidemia-Chronic, stable Cardiac murmur-Chronic, stable Cor pulmonale-Chronic, stable Diastolic HF-Chronic, stable, starting spironolactone to avoid worsening History of seizure-Chronic, stable Nocturia-Chronic, stable - HPI History of Present Illness: HPI per Dr. Mireles: 83-year-old male with a past medical history significant for hypertension and chronic lower back pain with a right foot drop who presented yesterday evening for weakness and difficulty ambulating after having a fall yesterday morning. The patient states he has chronic lower back pain after he had lumbar surgery in the late 70s. He recently has been receiving epidural steroid injections with the last one being near the end of 2019. Receives and injections with Dr. Langford at [place]. He states the most recent one was not successful as his pain is only controlled for a few days. He states that he has had right drop foot for the past few years. He had initially been ambulating with a cane but now needs to use a walker. 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 He states that he has chronic numbness in his right lower extremity that is most prominent below the right knee. Yesterday morning he went ambulate to his closet at around 6:30 AM but he did not use his walker like he usually does and he fell. He denied any syncope or loss of consciousness. He did slightly hit the back of his head but most of the fall had him landed on his lower back. He states that he was able to get up with assistance and was able to go on with his day which included getting coffee with his and friends likely do every morning. He states that when he returned home in the afternoon he was still doing fine. He notes in the evening he was unable to get out of the chair which is new for him. He needed assistance and had to use his upper extremities to help stand up. He states that his both his legs felt weak and shaky. He reports no bladder or bowel incontinence or perineal anesthesia. He reports no fevers, chills, chest pain, dizziness, or palpitations. He reports his lower back pain is currently controlled after receiving pain medication in the emergency department. He reports no seizure today. He is on Dilantin after he had an alcohol withdrawal seizure back in 1985. He no longer drinks alcohol. Reports he has had good oral intake at home but he does report feeling thirsty at the moment. In the emergency department, he is found to be afebrile temperature of 37 C, heart rate of 81. He was hypertensive with a blood pressure of 193/86. He does not have tachypnea and saturating well on room air. Labs are unremarkable except for sodium of 128 and chloride of 94. Urinalysis was unremarkable. CT of the head, cervical spine, and thoracic spine did not show any acute abnormalities. CT of the lumbar spine showed an acute mildly displaced transverse fracture through superior endplate of the L1 vertebral body with no extension into posterior vertebral margin and no retropulsion. The patient was still quite weak in the emergency department and he was unable to get out of bed without a two-person assist patient. Neurosurgery was contacted at [facility] by the emergency department physician who felt acute surgical intervention was not warranted. He recommended he can follow-up with the spine clinic and a MRI can be obtained. Patient did receive a liter of saline in the emergency dep artment as well as 10 mg of dexamethasone. He also received Toradol with improvement in his pain. I did discuss goals of care with the patient who states that he would like to be a DNR. - HOSPITAL COURSE Hospital Course: The patient was admitted to the hospital since a fall, possibly leading to a L1 (lumbar) spinal fracture, which was confirmed via spinal MRI, without any other new findings. [place] neuro-surgery was called to review films and give recommendations. Surgery is not recommended, and the patient has been advised to continue working with physical therapy to slowly improve your strength. An echocardiogram of your heart was done to evaluate a heart murmur. This showed Cor Pulmonale (pulmonary hypertension), which a sleep study may be recommended after this acute illness resolves. Based on the echo, diastolic HF was also noted, so Norvasc was discontinued and replaced with Spironolactone as a rate control medication was not indicated due to normal heart rate trends. Home health orders were placed, including physical therapy, occupational therapy and a bath aide. The patient was medically stable and transported via private car home with his Karyn who will be assisted via EMS for a lift assist once they arrive home. The patient was cautioned to avoid constipation, as this can aggravate back pain. A short course of oxycodone was prescribed since the patient had good pain relief while in the hospital by using oxycodone prior to therapies. - ALLERGIES Allergies/Adverse Reactions: Allergies Allergy/AdvReac Type Severity Reaction Status Date / Time No Known Drug Allergies Allergy Verified 05/19/19 19:11 - MEDICATIONS Home Medications: Ambulatory Orders Medication Instructions Recorded Confirmed Aspirin 81 mg PO DAILY 09/07/16 05/19/19 Doxazosin [Cardura] 8 mg PO DAILY PM 09/07/16 05/19/19 Finasteride 5 mg PO DAILY 09/07/16 05/19/19 Phenytoin [Dilantin] 100 mg PO TID 09/07/16 05/19/19 Simvastatin 20 mg PO DAILY PM 09/07/16 05/19/19 Melatonin 5 mg PO DAILY 05/19/19 05/19/19 Sennosides/Docusate Sodium [Stool 1 each PO DAILY 05/19/19 05/19/19 Softener-Laxative Tablet] Spironolactone 25 mg PO DAILY #30 tablet 05/21/19 oxyCODONE [Roxicodone] 5 mg PO Q4HR PRN #25 tablet 05/21/19 - PHYSICAL EXAM AT DISCHARGE General Appearance: positive: No acute distress, Alert Eyes Bilateral: positive: PERRL, No lid inflammation ENT: positive: Pharynx nml, No signs of dehydration Neck: positive: Thyroid nml, No JVD, Trachea midline Respiratory: positive: Chest non-tender, No respiratory distress Cardiovascular: positive: Regular rate & rhythm, No gallop, Systolic murmur, Decreased pulse(s) Peripheral Pulses: positive: 1+ Abdomen: positive: Non-tender, Nml bowel sounds, Other (enlarged, rounded, soft) Back: positive: Nml inspection Skin: positive: Color nml, No rash, Warm, Dry Extremities: positive: Non-tender, No pedal edema, Joint swelling Neurologic/Psychiatric: positive: Oriented x3, CN's nml (2-12), Motor nml, Weakness, Depressed mood/affect (flat) Reflexes: Bicep (R): 3+, Bicep (L): 3+ - LABS Result Diagrams: 05/21/19 04:45 05/21/19 04:45 - FOLLOW UP Follow Up: PT,OT and home health aide to continue at home See your PCP within one week if possible Get a sleep study after your back issues have improved - TIME SPENT Time Spent in Discharge (Minutes): 55
== END 2019-05-21 14:33 | disposition home health service (06) ==
LOC: EDUNIT# → ED 18:59 → MS2 05-20 02:52
PROVIDERS: ADMIT Internal Medicine; ATTEND Nurse Practitioner
DX: S32.011A Stable burst fracture of first lumbar vertebra, initial encounter for closed fracture (principal); E87.1 Hypo-osmolality and hyponatremia; E86.0 Dehydration; E78.00 Pure hypercholesterolemia, unspecified; R53.1 Weakness; R01.1 Cardiac murmur, unspecified; R35.1 Nocturia; I11.0 Hypertensive heart disease with heart failure; I50.32 Chronic diastolic (congestive) heart failure; I08.1 Rheumatic disorders of both mitral and tricuspid valves; I27.81 Cor pulmonale (chronic); G89.29 Other chronic pain; M48.062 Spinal stenosis, lumbar region with neurogenic claudication; M21.371 Foot drop, right foot; M85.80 Other specified disorders of bone density and structure, unspecified site; K59.00 Constipation, unspecified; W19.XXXA Unspecified fall, initial encounter; Y92.008 Other place in unspecified non-institutional (private) residence as the place of occurrence of the external cause; Y93.9 Activity, unspecified; Z79.82 Long term (current) use of aspirin; Z79.899 Other long term (current) drug therapy; Z86.69 Personal history of other diseases of the nervous system and sense organs; Z87.891 Personal history of nicotine dependence
CPT/HCPCS: 36415; 51798; 70450; 72125; 72128; 72131; 72148; 80048; 80053; 80185; 81003; 83605; 83690; 83735; 84100; 84484; 85025; 87040; 93306; 96361; 96372; 96374; 96375; 96376; 97162; 97166; 97530; 99285; A9270; G0378; J2060; 81001; 87086

== ENCOUNTER 2020-08-25 10:48 | Outpatient (CLI) | payer MEDICARE, OTHER | END 2020-08-25 10:49 | disposition EMS.NT | LOC: EMS 10:48 | DX: R55 Syncope and collapse (principal) ==